=== PATIENT | male | born 1955 | race Caucasian/White ===

== ENCOUNTER 2018-08-24 14:08 | Emergency (ER) | payer OTHER ==
[2018-08-24 14:22] VITALS: BP 166/102
--- NOTE | 2018-08-24 14:32 | UC ---
Epistaxis Nasal HPI - HPI Summary HPI Summary: started with nose bleed last ana maria. stopped but today started again. stopped Xeralto 2 years ago. Is also off HTN meds as per cardiology for months - History of Current Complaint Chief Complaint: UCGeneralIllness Stated Complaint: NOSE BLEED Time Seen by Provider: 08/24/18 14:17 Hx Obtained From: Patient Onset/Duration: Sudden Onset Timing: Intermittent Episode Lasting Pain Intensity: 0 Aggravating Factor(s): Nothing Alleviating Factor(s): Nothing Associated Signs And Symptoms: Positive: Negative PMH/Surg Hx/FS Hx/Imm Hx Previously Healthy: Yes Cardiovascular History: Hypertension, Atrial Fibrillation - Surgical History Surgical History: Yes Surgery Procedure, Year, and Place: L3-4 BACK SURGERY- [facility]-1994. COLONOSCOPY - Family History Known Family History: Positive: Hypertension - Social History Occupation: Employed Part-time Lives: With Family Alcohol Use: Daily Alcohol Amount: white wine 2 glasses/day Substance Use Type: None Smoking Status (MU): Never Smoked Tobacco - Immunization History Most Recent Influenza Vaccination: never Most Recent Tetanus Shot: unknown Most Recent Pneumonia Vaccination: never Review of Systems Constitutional: Negative ENT: Epistaxis Respiratory: Negative Cardiovascular: Negative Neurological: Negative Psychological: Negative Is Patient Immunocompromised?: No All Other Systems Reviewed And Are Negative: Yes Physical Exam - Summary Physical Exam Summary: repeat B/P: 156/92 pt intends to f/u with PCP this week Triage Information Reviewed: Yes Appearance: Well-Appearing, No Pain Distress, Well-Nourished Vital Signs: Initial Vital Signs Temp 98.3 F 08/24/18 14:15 Pulse 63 08/24/18 14:15 Resp 18 08/24/18 14:15 BP 166/102 08/24/18 14:15 Pulse Ox 100 08/24/18 14:15 Vital Signs Reviewed: Yes Eyes: Positive: Conjunctiva Clear ENT: Positive: Pharynx normal, Nasal congestion, Other - epistaxis L nostril. resolved after pinching nose for 10 minutes Neck exam: Normal Respiratory Exam: Normal Cardiovascular Exam: Normal Neurological Exam: Normal Neurological: Positive: Alert Skin Exam: Normal Epistaxis Nasal Course/Dx - Differential Dx/Diagnosis Differential Diagnosis/HQI/PQRI: Epistaxis, Hypertension Provider Diagnoses: epistaxis. HTN Discharge - Sign-Out/Discharge Documenting (check all that apply): Patient Departure All imaging exams completed and their final reports reviewed: No Studies - Discharge Plan Condition: Stable Disposition: HOME Patient Education Materials: Nosebleed (ED), Hypertension (ED) Referrals: Jerry Nieves MD [Primary Care Provider] - 2 Days (recheck) Additional Instructions: Rest keep pressure on nostrils with clamp if nose bleed worsens please go to ER for further treatment monitor blood pressure and follow-up with your primary physician this week - Billing Disposition and Condition Condition: STABLE Disposition: Home
== END 2018-08-24 15:10 | disposition home or self-care (01) ==
LOC: UCEAST 14:08
DX: R04.0 Epistaxis (principal); I10 Essential (primary) hypertension
CPT/HCPCS: 99211; G0463